=== PATIENT | male | born 1945 | race Caucasian/White ===

== ENCOUNTER 2018-12-11 10:53 | Inpatient (IN) | payer MEDICARE, OTHER, MEDICAID ==
[2018-12-11] MEDS: ALBUTEROL 0.5% (NEB) 2.5 MG/0.5 ML AMP INH (11:09)
[2018-12-11] MEDS: IPRATROPIUM (NEB) 0.5 MG/2.5 ML AMP INH (11:09)
[2018-12-11 11:13] LABS: ADD MAN DIFF? NO
[2018-12-11 11:14] LABS: WHITE BLOOD COUNT 5.1 10^3/ul (4.8-10.8)
[2018-12-11 11:14] LABS: ABNORMAL IP MESSAGE 1; BASOPHILS % 0.2 % (0.0-2.0); HEMATOCRIT 42.8 % (42.0-52.0); HEMOGLOBIN 13.7 g/dl (14.0-18.0); LYMPHOCYTES # 0.3 10^3/ul (0.8-2.9); LYMPHOCYTES % 5.7 % (15.0-51.0); MEAN CORPUSCULAR HEMOGLOBIN 26.8 pg (29.0-33.0); MEAN CORPUSCULAR VOLUME 83.8 fl (82.0-101.0); MEAN PLATELET VOLUME 10.5 fl (7.4-10.4); MONOCYTE # 0.1 10^3/ul (0.3-0.9); MONOCYTES % 2.4 % (0.0-11.0); NEUTROPHIL # 4.6 10^3/ul (1.6-7.5); PLATELET COUNT 321 10^3/UL (140-415); POSITIVE DIFF @See below; RED BLOOD COUNT 5.11 10^6/ul (4.70-6.10); RED CELL DISTRIBUTION WIDTH 14.6 % (11.5-14.5)
[2018-12-11 11:15] LABS: NEUTROPHILS % 91.5 % (39.0-77.0)
[2018-12-11] MEDS: SODIUM CHLORIDE 0.9% 1L BAG IV* (11:20)
[2018-12-11] MEDS: CEFEPIME 2GM/50 ML (PMX) 50 ML IVPB (11:20)
[2018-12-11] MEDS: ACETAMINOPHEN 650 MG SUPP PR (11:21)
[2018-12-11 11:31] LABS: ALANINE AMINOTRANSFERASE 15 IU/L (13-69); ALBUMIN 4.1 g/dl (3.3-4.9); ALKALINE PHOSPHATASE 60 IU/L (42-121); ANION GAP 17 (5-13); ASPARTATE AMINO TRANSFERASE 16 IU/L (15-46); BILIRUBIN,INDIRECT 0.4 mg/dl (0-1.1); BILIRUBIN,TOTAL 0.4 mg/dl (0.2-1.3); BLOOD UREA NITROGEN 104 mg/dl (7-20); CALCIUM 9.3 mg/dl (8.4-10.2); CARBON DIOXIDE 23 mmol/L (21-31); CHLORIDE 112 mmol/L (97-110); CREATININE 3.09 mg/dl (0.61-1.24); GLUCOSE 159 mg/dl (70-220); POTASSIUM 4.1 mmol/L (3.5-5.1); SODIUM 152 mmol/L (135-144); TOTAL PROTEIN 7.8 g/dl (6.1-8.1)
[2018-12-11 11:33] LABS: INR 1.05; PROTIME 13.8 Sec (11.9-14.9); PT RATIO 1.1
[2018-12-11 11:34] LABS: PARTIAL THROMBOPLASTIN TIME 28.3 Sec (23.0-35.0)
[2018-12-11 11:37] LABS: AADO2 Arterial 606.9 mmHg (7.0-24.0); Allen Test ACCEPTAB; Arterial Base Excess -1.5 mmol/L (-3.0-3); Arterial Blood Gas Oxygen Sat 93.9 mmHG (95.0-100.0); Arterial COHb 0.3 % (0.0-3.0); Arterial Fraction of Oxyhgb 93.4 % (93.0-99.0); Arterial MetHb 0.2 % (0.0-1.5); Arterial pCO2 33.7 mmhg (35-45); MODE MASK - NRB; Site Left Radial
[2018-12-11] MEDS: VANCOMYCIN 1 GM (PMX) 250 ML IVPB (11:52)
[2018-12-11 12:11] LABS: ANISOCYTOSIS 1+ (0-0); BAND NEUTROPHILS % (M) 20 % (0-4); LYMPHOCYTES #M 0.3 10^3/ul (0.8-2.9); LYMPHOCYTES % (M) 7 % (15-51); MONOCYTE #M 0.1 10^3/ul (0.3-0.9); MONOCYTES % (M) 3 % (0-11); PLATELET ESTIMATE NORMAL; POIKILOCYTOSIS 1+ (0-0); POLYCHROMASIA 1+ (0-0); SEG NEUT #M 3.6 10^3/ul (1.6-7.5); SEGMENTED NEUTROPHILS (M) % 70 % (39-77)
[2018-12-11] MEDS ORDERED: ONDANSETRON 4 MG INJ IV (14:00)
[2018-12-11] MEDS ORDERED: ACETAMINOPHEN 325 MG TAB PO (14:00)
[2018-12-11 14:09] LABS: ADD UMIC YES; UR ASCORBIC ACID NEGATIVE (NEGATIVE); UR BACTERIA FEW /HPF (NONE SEEN); UR BILIRUBIN (Dip) NEGATIVE (NEGATIVE); UR BLOOD (Dip) 2+ mg/dL (NEGATIVE); UR BUDDING YEAST MODERATE /HPF (NONE SEEN); UR CLARITY CLOUDY (CLEAR); UR COLOR AMBER (YELLOW); UR GLUCOSE (Dip) NEGATIVE (NEGATIVE); UR KETONES (Dip) NEGATIVE (NEGATIVE); UR LEUKOCYTE ESTERASE (Dip) NEGATIVE Leu/ul (NEGATIVE); UR NITRITE (Dip) NEGATIVE (NEGATIVE); UR RBC 98 /HPF (0-5); UR TOTAL PROTEIN (Dip) 1+ mg/dl (NEGATIVE); UR UROBILINOGEN (Dip) 1+ mg/dL (NEGATIVE); UR WBC 4 /HPF (0-5)
[2018-12-11 14:25] LABS: LACTIC ACID 2.3 mmol/L (0.5-2.0)
[2018-12-11] MEDS: LIDOCAINE 1% (MPF) 5 ML VIAL SC (14:45)
[2018-12-11] MEDS ORDERED: MAGNESIUM HYDROXIDE 30ML CUP PO (15:00)
[2018-12-11] MEDS ORDERED: BISACODYL 10 MG SUPP PR (15:00)
[2018-12-11] MEDS ORDERED: VANCOMYCIN IV PER PHARMACY XX (16:00)
[2018-12-11 16:15] LABS: CREATININE,URINE RANDOM 252.13 mg/dl (20-370)
[2018-12-11 16:16] LABS: SODIUM,URINE RANDOM < 13 mmol/L (30-90)
[2018-12-11] MEDS ORDERED: DEXTROSE 50% 50 ML SYRINGE IV ×2 (16:30)
[2018-12-11] MEDS ORDERED: GLUCOSE GEL 15 GRAM TUBE PO ×2 (16:30)
[2018-12-11] MEDS ORDERED: GLUCAGON 1 MG INJ IM (16:30)
[2018-12-11] MEDS ORDERED: GLUCOSE GEL 15 GRAM TUBE BUCCAL (16:30)
[2018-12-11] MEDS: SOD CHLORIDE 0.45% 1,000 ML IV (16:52)
[2018-12-11] MEDS: VANCOMYCIN 500 MG (PMX) 100 ML IVPB (16:53)
[2018-12-11 17:11] LABS: LACTIC ACID 2.6 mmol/L (0.5-2.0)
[2018-12-12] MEDS: SOD CHLORIDE 0.45% 1,000 ML IV ×4 (01:00→23:35)
[2018-12-12] MEDS ORDERED: PENDING SANTYL ORDER FOR WOUND CARE XX (05:00)
[2018-12-12 06:43] LABS: ADD MAN DIFF? NO
[2018-12-12 06:52] LABS: ABNORMAL IP MESSAGE 1; BASOPHILS % 0.7 % (0.0-2.0); HEMATOCRIT 41.6 % (42.0-52.0); HEMOGLOBIN 12.9 g/dl (14.0-18.0); LYMPHOCYTES # 0.3 10^3/ul (0.8-2.9); LYMPHOCYTES % 7.1 % (15.0-51.0); MEAN CORPUSCULAR HEMOGLOBIN 26.8 pg (29.0-33.0); MEAN CORPUSCULAR VOLUME 86.5 fl (82.0-101.0); MEAN PLATELET VOLUME 10.9 fl (7.4-10.4); MONOCYTE # 0.1 10^3/ul (0.3-0.9); MONOCYTES % 2.6 % (0.0-11.0); NEUTROPHIL # 3.8 10^3/ul (1.6-7.5); NEUTROPHILS % 89.4 % (39.0-77.0); PLATELET COUNT 245 10^3/UL (140-415); RED BLOOD COUNT 4.81 10^6/ul (4.70-6.10)
[2018-12-12 06:52] LABS: WHITE BLOOD COUNT 4.2 10^3/ul (4.8-10.8)
[2018-12-12 07:19] LABS: PREALBUMIN 10.3 mg/dl (17.6-36.0)
[2018-12-12 07:23] LABS: ANION GAP 11 (5-13); BLOOD UREA NITROGEN 85 mg/dl (7-20); CALCIUM 8.5 mg/dl (8.4-10.2); CARBON DIOXIDE 23 mmol/L (21-31); CHLORIDE 122 mmol/L (97-110); CREATININE 1.71 mg/dl (0.61-1.24); GLUCOSE 110 mg/dl (70-220); MAGNESIUM 2.9 mg/dl (1.7-2.5); PHOSPHORUS 3.8 mg/dl (2.5-4.9); POTASSIUM 3.3 mmol/L (3.5-5.1); SODIUM 156 mmol/L (135-144)
[2018-12-12 07:49] LABS: BAND NEUTROPHILS #M 0.8 10^3/ul (0.0-0.6); BAND NEUTROPHILS % (M) 20 % (0-4); LYMPHOCYTES #M 0.4 10^3/ul (0.8-2.9); LYMPHOCYTES % (M) 10 % (15-51); MONOCYTE #M 0.3 10^3/ul (0.3-0.9); MONOCYTES % (M) 8 % (0-11); PLATELET ESTIMATE NORMAL; POIKILOCYTOSIS 2+ (0-0); REACTIVE LYMPHOCYTES% (M) 1 % (0-0); SEG NEUT #M 2.6 10^3/ul (1.6-7.5); SEGMENTED NEUTROPHILS (M) % 61 % (39-77); SMUDGE%M 1 % (0-0); SPHEROCYTES 1+ (0-0)
[2018-12-12] MEDS: INSULIN ASPART [NOVOLOG] 3 ML PEN SC (07:55)
[2018-12-12] MEDS: CEFEPIME 1GM/50 ML (PMX) 50 ML IVPB (08:17)
[2018-12-12] MEDS: POTASSIUM CHLORIDE (SR) 20 MEQ TAB PO ×2 (09:01→09:08)
[2018-12-12] MEDS: POTASSIUM CHLORIDE 100 ML IVPB ×2 (10:02→11:39)
[2018-12-12 10:32] LABS: LACTIC ACID 1.6 mmol/L (0.5-2.0)
[2018-12-12] MEDS: Insulin NOVOLOG SS MILD Algorithm (NPO/TPN/ENTERAL FEEDS) SC ×3 (11:39→21:00)
[2018-12-12] MEDS ORDERED: INSULIN ASPART [NOVOLOG] 3 ML PEN SC (13:00)
[2018-12-12] MEDS ORDERED: VANCOMYCIN 500 MG (PMX) 100 ML IVPB (17:00)
[2018-12-12] MEDS: MEROPENEM 500MG/50 ML (PMX) 50 ML IVPB (21:12)
[2018-12-12] MEDS: ACETAMINOPHEN 650 MG SUPP PR (21:55)
[2018-12-13] MEDS: Insulin NOVOLOG SS MILD Algorithm (NPO/TPN/ENTERAL FEEDS) SC ×6 (01:00→21:00)
[2018-12-13] MEDS: SOD CHLORIDE 0.45% 1,000 ML IV ×2 (01:50→06:15)
[2018-12-13] MEDS: VANCOMYCIN 1 GM 250 ML IVPB (06:16)
[2018-12-13 06:22] LABS: ADD MAN DIFF? NO
[2018-12-13 06:25] LABS: ABNORMAL IP MESSAGE 1; BASOPHILS % 0.2 % (0.0-2.0); HEMATOCRIT 36.7 % (42.0-52.0); HEMOGLOBIN 11.2 g/dl (14.0-18.0); LYMPHOCYTES # 0.5 10^3/ul (0.8-2.9); LYMPHOCYTES % 10.2 % (15.0-51.0); MEAN CORPUSCULAR HEMOGLOBIN 26.4 pg (29.0-33.0); MEAN CORPUSCULAR HGB CONC 30.5 g/dl (32.0-37.0); MEAN CORPUSCULAR VOLUME 86.6 fl (82.0-101.0); MEAN PLATELET VOLUME 11.5 fl (7.4-10.4); MONOCYTE # 0.1 10^3/ul (0.3-0.9); NEUTROPHIL # 3.8 10^3/ul (1.6-7.5); NEUTROPHILS % 86.9 % (39.0-77.0); PLATELET COUNT 208 10^3/UL (140-415); POSITIVE DIFF @See below; RED BLOOD COUNT 4.24 10^6/ul (4.70-6.10); RED CELL DISTRIBUTION WIDTH 15.6 % (11.5-14.5)
[2018-12-13 06:25] LABS: WHITE BLOOD COUNT 4.4 10^3/ul (4.8-10.8)
[2018-12-13 06:49] LABS: ANION GAP 11 (5-13); BLOOD UREA NITROGEN 115 mg/dl (7-20); CALCIUM 8.1 mg/dl (8.4-10.2); CARBON DIOXIDE 18 mmol/L (21-31); CHLORIDE 125 mmol/L (97-110); GLUCOSE 110 mg/dl (70-220); MAGNESIUM 2.7 mg/dl (1.7-2.5); POTASSIUM 4.1 mmol/L (3.5-5.1); SODIUM 154 mmol/L (135-144)
[2018-12-13] MEDS: MEROPENEM 500MG/50 ML (PMX) 50 ML IVPB ×2 (09:49→21:03)
[2018-12-13 10:04] LABS: BAND NEUTROPHILS #M 0.6 10^3/ul (0.0-0.6); BAND NEUTROPHILS % (M) 15 % (0-4); BURR CELLS 1+ (0-0); GIANT THROMBO% (M) 2 % (0-0); LYMPHOCYTES #M 0.3 10^3/ul (0.8-2.9); LYMPHOCYTES % (M) 7 % (15-51); MONOCYTES % (M) 1 % (0-11); MYELOCYTES % (M) 1 % (0-0); OVALOCYTES 1+ (0-0); PLATELET ESTIMATE NORMAL; POIKILOCYTOSIS 1+ (0-0); SEG NEUT #M 3.4 10^3/ul (1.6-7.5); SEGMENTED NEUTROPHILS (M) % 76 % (39-77); SMUDGE%M 4 % (0-0)
[2018-12-13 11:17] LABS: AADO2 Arterial 460.2 mmHg (7.0-24.0); Allen Test ACCEPTAB; Arterial Blood Gas Oxygen Sat 94.4 mmHG (95.0-100.0); Arterial COHb 0.3 % (0.0-3.0); Arterial Fraction of Oxyhgb 93.9 % (93.0-99.0); Arterial HCO3 16.6 mmol/L (22.0-26.0); Arterial MetHb 0.2 % (0.0-1.5); Arterial pCO2 31.3 mmhg (35-45); MODE HFNC; Site Right Radial
[2018-12-13] MEDS: DEXTROSE 5% 1,000 ML IV ×2 (11:29→21:19)
[2018-12-13 12:51] LABS: ADD UMIC YES; UR ASCORBIC ACID NEGATIVE (NEGATIVE); UR BACTERIA FEW /HPF (NONE SEEN); UR BILIRUBIN (Dip) NEGATIVE (NEGATIVE); UR BLOOD (Dip) 2+ mg/dL (NEGATIVE); UR CLARITY SLIGHTLY CLOUDY (CLEAR); UR COLOR YELLOW (YELLOW); UR GLUCOSE (Dip) NEGATIVE (NEGATIVE); UR KETONES (Dip) NEGATIVE (NEGATIVE); UR LEUKOCYTE ESTERASE (Dip) NEGATIVE Leu/ul (NEGATIVE); UR NITRITE (Dip) NEGATIVE (NEGATIVE); UR RBC 4 /HPF (0-5); UR SPECIFIC GRAVITY (Dip) 1.016 (1.003-1.030); UR TOTAL PROTEIN (Dip) 1+ mg/dl (NEGATIVE); UR UROBILINOGEN (Dip) NEGATIVE (NEGATIVE); UR WBC 6 /HPF (0-5)
[2018-12-13] MEDS: BALSAM PERU/CASTOR OIL 60 GM TUBE TOP ×2 (12:55→21:19)
[2018-12-13 13:08] LABS: CREATININE,URINE RANDOM 91.85 mg/dl (20-370)
[2018-12-13 13:12] LABS: SODIUM,URINE RANDOM < 13 mmol/L (30-90)
[2018-12-13 15:52] LABS: CREATININE, RANDOM URINE 231 mg/dL (20-320); MICROALBUMIN 13.4 mg/dL; MICROALBUMIN/CREATININE RATIO 58 (<30)
[2018-12-13] MEDS: ACETAMINOPHEN 650 MG SUPP PR (20:57)
[2018-12-13] MEDS: LINEZOLID 600 MG/300 ML (PMX) 300 ML IVPB (22:55)
[2018-12-14 00:26] LABS: ANION GAP 8 (5-13); CALCIUM 8.6 mg/dl (8.4-10.2); CARBON DIOXIDE 20 mmol/L (21-31); CHLORIDE 128 mmol/L (97-110); CREATININE 2.67 mg/dl (0.61-1.24); GLUCOSE 118 mg/dl (70-220); MAGNESIUM 2.9 mg/dl (1.7-2.5); PHOSPHORUS 4.1 mg/dl (2.5-4.9); POTASSIUM 3.9 mmol/L (3.5-5.1); SODIUM 156 mmol/L (135-144)
[2018-12-14 00:34] LABS: BLOOD UREA NITROGEN 125 mg/dl (7-20)
[2018-12-14] MEDS: Insulin NOVOLOG SS MILD Algorithm (NPO/TPN/ENTERAL FEEDS) SC ×6 (01:00→21:00)
[2018-12-14 06:13] LABS: ADD MAN DIFF? NO
[2018-12-14 06:19] LABS: WHITE BLOOD COUNT 4.5 10^3/ul (4.8-10.8)
[2018-12-14 06:19] LABS: ABNORMAL IP MESSAGE 1; BASOPHILS % 0.2 % (0.0-2.0); HEMATOCRIT 34.4 % (42.0-52.0); HEMOGLOBIN 10.6 g/dl (14.0-18.0); LYMPHOCYTES # 0.4 10^3/ul (0.8-2.9); MEAN CORPUSCULAR HEMOGLOBIN 26.6 pg (29.0-33.0); MEAN CORPUSCULAR HGB CONC 30.8 g/dl (32.0-37.0); MEAN CORPUSCULAR VOLUME 86.2 fl (82.0-101.0); MEAN PLATELET VOLUME 11.5 fl (7.4-10.4); MONOCYTE # 0.1 10^3/ul (0.3-0.9); MONOCYTES % 1.3 % (0.0-11.0); NEUTROPHILS % 88.8 % (39.0-77.0); PLATELET COUNT 184 10^3/UL (140-415); POSITIVE DIFF @See below; RED BLOOD COUNT 3.99 10^6/ul (4.70-6.10); RED CELL DISTRIBUTION WIDTH 15.6 % (11.5-14.5)
[2018-12-14 07:05] LABS: ANION GAP 9 (5-13); CALCIUM 8.5 mg/dl (8.4-10.2); CARBON DIOXIDE 18 mmol/L (21-31); CHLORIDE 128 mmol/L (97-110); CREATININE 2.54 mg/dl (0.61-1.24); GLUCOSE 165 mg/dl (70-220); POTASSIUM 3.8 mmol/L (3.5-5.1); SODIUM 155 mmol/L (135-144)
[2018-12-14 07:19] LABS: BLOOD UREA NITROGEN 129 mg/dl (7-20)
[2018-12-14] MEDS: BALSAM PERU/CASTOR OIL 60 GM TUBE TOP ×2 (09:03→20:40)
[2018-12-14 09:08] LABS: AADO2 Arterial 468.6 mmHg (7.0-24.0); Arterial Base Excess -6.7 mmol/L (-3.0-3); Arterial Blood Gas Oxygen Sat 93.7 mmHG (95.0-100.0); Arterial COHb 0.1 % (0.0-3.0); Arterial Fraction of Oxyhgb 93.3 % (93.0-99.0); Arterial HCO3 16.8 mmol/L (22.0-26.0); Arterial MetHb 0.3 % (0.0-1.5); Arterial pCO2 28.8 mmhg (35-45); MODE HFNC; Site Right Brachial
[2018-12-14 09:14] LABS: BAND NEUTROPHILS #M 0.5 10^3/ul (0.0-0.6); BAND NEUTROPHILS % (M) 13 % (0-4); BURR CELLS 1+ (0-0); LYMPHOCYTES #M 0.3 10^3/ul (0.8-2.9); LYMPHOCYTES % (M) 8 % (15-51); MONOCYTES % (M) 2 % (0-11); OVALOCYTES 1+ (0-0); PLATELET ESTIMATE NORMAL; POIKILOCYTOSIS 2+ (0-0); SEG NEUT #M 3.5 10^3/ul (1.6-7.5); SEGMENTED NEUTROPHILS (M) % 77 % (39-77); SMUDGE%M 15 % (0-0)
[2018-12-14] MEDS: MEROPENEM 500MG/50 ML (PMX) 50 ML IVPB ×2 (09:15→20:41)
[2018-12-14] MEDS: LINEZOLID 600 MG/300 ML (PMX) 300 ML IVPB ×2 (09:19→20:41)
[2018-12-14] MEDS: ENOXAPARIN 60 MG/0.6 ML SYG SC (11:43)
[2018-12-14] MEDS: ASPIRIN (EC) 81 MG TAB PO (14:00)
[2018-12-14 15:28] LABS: ANION GAP 6 (5-13); CALCIUM 8.1 mg/dl (8.4-10.2); CARBON DIOXIDE 20 mmol/L (21-31); CHLORIDE 128 mmol/L (97-110); CREATININE 2.37 mg/dl (0.61-1.24); GLUCOSE 159 mg/dl (70-220); POTASSIUM 3.8 mmol/L (3.5-5.1); SODIUM 154 mmol/L (135-144)
[2018-12-14 15:46] LABS: BLOOD UREA NITROGEN 128 mg/dl (7-20)
[2018-12-14] MEDS: DEXTROSE 5% 1,000 ML IV ×2 (17:12→20:41)
[2018-12-14 22:56] LABS: ADD MAN DIFF? NO
[2018-12-14 22:59] LABS: ABNORMAL IP MESSAGE 1; HEMOGLOBIN 8.6 g/dl (14.0-18.0); LYMPHOCYTES # 0.4 10^3/ul (0.8-2.9); LYMPHOCYTES % 8.1 % (15.0-51.0); MEAN CORPUSCULAR HEMOGLOBIN 26.5 pg (29.0-33.0); MEAN CORPUSCULAR HGB CONC 30.7 g/dl (32.0-37.0); MEAN CORPUSCULAR VOLUME 86.2 fl (82.0-101.0); MEAN PLATELET VOLUME 12.5 fl (7.4-10.4); MONOCYTE # 0.1 10^3/ul (0.3-0.9); MONOCYTES % 2.1 % (0.0-11.0); NEUTROPHIL # 4.2 10^3/ul (1.6-7.5); NEUTROPHILS % 89.4 % (39.0-77.0); PLATELET COUNT 174 10^3/UL (140-415); POSITIVE DIFF @See below; RED BLOOD COUNT 3.25 10^6/ul (4.70-6.10); RED CELL DISTRIBUTION WIDTH 15.9 % (11.5-14.5)
[2018-12-14 22:59] LABS: WHITE BLOOD COUNT 4.7 10^3/ul (4.8-10.8)
[2018-12-15 00:45] LABS: ANISOCYTOSIS 1+ (0-0); BAND NEUTROPHILS #M 0.3 10^3/ul (0.0-0.6); BAND NEUTROPHILS % (M) 7 % (0-4); BURR CELLS 2+ (0-0); LYMPHOCYTES #M 0.2 10^3/ul (0.8-2.9); LYMPHOCYTES % (M) 5 % (15-51); MYELOCYTES % (M) 1 % (0-0); OVALOCYTES 1+ (0-0); PLASMAC%(M) 1 % (0); PLATELET ESTIMATE NORMAL; POIKILOCYTOSIS 2+ (0-0); POLYCHROMASIA 1+ (0-0); SEG NEUT #M 4.1 10^3/ul (1.6-7.5); SEGMENTED NEUTROPHILS (M) % 86 % (39-77); SMUDGE%M 1 % (0-0); TEAR DROP CELLS 1+ (0-0)
[2018-12-15] MEDS: Insulin NOVOLOG SS MILD Algorithm (NPO/TPN/ENTERAL FEEDS) SC ×6 (01:12→21:21)
[2018-12-15] MEDS: DEXTROSE 5% 1,000 ML IV ×3 (05:08→21:14)
[2018-12-15] MEDS: PANTOPRAZOLE 40 MG INJ IV ×2 (05:08→17:04)
[2018-12-15 06:31] LABS: WHITE BLOOD COUNT 4.9 10^3/ul (4.8-10.8)
[2018-12-15 06:31] LABS: ABNORMAL IP MESSAGE 1; HEMATOCRIT 27.1 % (42.0-52.0); HEMOGLOBIN 8.4 g/dl (14.0-18.0); MEAN CORPUSCULAR HEMOGLOBIN 27.1 pg (29.0-33.0); MEAN CORPUSCULAR VOLUME 87.4 fl (82.0-101.0); PLATELET COUNT 88 10^3/UL (140-415); POSITIVE DIFF @See below; RED CELL DISTRIBUTION WIDTH 16.1 % (11.5-14.5)
[2018-12-15 06:34] LABS: ADD MAN DIFF? YES
[2018-12-15 07:24] LABS: ANION GAP 7 (5-13); BLOOD UREA NITROGEN 119 mg/dl (7-20); CALCIUM 8.2 mg/dl (8.4-10.2); CARBON DIOXIDE 20 mmol/L (21-31); CHLORIDE 130 mmol/L (97-110); CREATININE 2.06 mg/dl (0.61-1.24); GLUCOSE 139 mg/dl (70-220); MAGNESIUM 2.7 mg/dl (1.7-2.5); PHOSPHORUS 3.5 mg/dl (2.5-4.9); POTASSIUM 3.4 mmol/L (3.5-5.1); SODIUM 157 mmol/L (135-144)
[2018-12-15 07:32] LABS: OCCULT BLOOD STOOL POSITIVE (NEGATIVE)
[2018-12-15] MEDS: ASPIRIN (EC) 81 MG TAB PO (07:57)
[2018-12-15] MEDS: MEROPENEM 500MG/50 ML (PMX) 50 ML IVPB ×2 (08:25→21:14)
[2018-12-15] MEDS: LINEZOLID 600 MG/300 ML (PMX) 300 ML IVPB ×2 (09:19→21:14)
[2018-12-15 10:04] LABS: ANISOCYTOSIS 1+ (0-0); BAND NEUTROPHILS #M 0.5 10^3/ul (0.0-0.6); BAND NEUTROPHILS % (M) 12 % (0-4); GIANT THROMBO% (M) 1 % (0-0); LYMPHOCYTES #M 0.4 10^3/ul (0.8-2.9); LYMPHOCYTES % (M) 9 % (15-51); MONOCYTES % (M) 2 % (0-11); PLATELET ESTIMATE DECREASED; POIKILOCYTOSIS 3+ (0-0); REACTIVE LYMPHOCYTES #M 0.1 10^3/ul (0.0-0.0); REACTIVE LYMPHOCYTES% (M) 4 % (0-0); SEG NEUT #M 3.6 10^3/ul (1.6-7.5); SEGMENTED NEUTROPHILS (M) % 73 % (39-77); SMUDGE%M 8 % (0-0)
[2018-12-15] MEDS: ALBUTEROL 0.083% (NEB) 2.5 MG/3 ML AMP NEB ×2 (10:13→14:21)
[2018-12-15] MEDS: POTASSIUM CHLORIDE 100 ML IVPB ×2 (10:44→12:14)
[2018-12-15] MEDS: BALSAM PERU/CASTOR OIL 60 GM TUBE TOP ×2 (10:51→21:14)
[2018-12-15 11:19] LABS: ADD UMIC YES; UR AMORPHOUS CRYSTAL MODERATE /HPF (NONE SEEN); UR ASCORBIC ACID NEGATIVE (NEGATIVE); UR BILIRUBIN (Dip) NEGATIVE (NEGATIVE); UR BLOOD (Dip) 2+ mg/dL (NEGATIVE); UR CLARITY CLOUDY (CLEAR); UR COLOR YELLOW (YELLOW); UR GLUCOSE (Dip) NEGATIVE (NEGATIVE); UR KETONES (Dip) NEGATIVE (NEGATIVE); UR LEUKOCYTE ESTERASE (Dip) NEGATIVE Leu/ul (NEGATIVE); UR NITRITE (Dip) NEGATIVE (NEGATIVE); UR RBC 1 /HPF (0-5); UR SPECIFIC GRAVITY (Dip) 1.016 (1.003-1.030); UR TOTAL PROTEIN (Dip) 1+ mg/dl (NEGATIVE); UR UROBILINOGEN (Dip) NEGATIVE (NEGATIVE); UR WBC 7 /HPF (0-5)
[2018-12-15] MEDS: ENOXAPARIN 30 MG/0.3 ML SYG SC (12:00)
[2018-12-15 12:48] LABS: CREATININE,URINE RANDOM 52.05 mg/dl (20-370)
[2018-12-15 12:49] LABS: SODIUM,URINE RANDOM < 13 mmol/L (30-90)
[2018-12-15 13:47] LABS: OSMOLALITY,URINE 534 mOsm/kg (250-1200)
[2018-12-15 16:08] LABS: ANION GAP 6 (5-13); BLOOD UREA NITROGEN 106 mg/dl (7-20); CALCIUM 7.8 mg/dl (8.4-10.2); CARBON DIOXIDE 19 mmol/L (21-31); CHLORIDE 132 mmol/L (97-110); CREATININE 1.89 mg/dl (0.61-1.24); GLUCOSE 147 mg/dl (70-220); POTASSIUM 3.7 mmol/L (3.5-5.1); SODIUM 157 mmol/L (135-144)
[2018-12-16] MEDS: Insulin NOVOLOG SS MILD Algorithm (NPO/TPN/ENTERAL FEEDS) SC ×6 (01:00→20:46)
[2018-12-16] MEDS: PANTOPRAZOLE 40 MG INJ IV ×2 (04:08→18:00)
[2018-12-16] MEDS: ALBUTEROL 0.083% (NEB) 2.5 MG/3 ML AMP NEB ×2 (05:22→11:14)
[2018-12-16 06:27] LABS: ABNORMAL IP MESSAGE 1; HEMATOCRIT 28.3 % (42.0-52.0); HEMOGLOBIN 8.6 g/dl (14.0-18.0); MEAN CORPUSCULAR HEMOGLOBIN 26.6 pg (29.0-33.0); MEAN CORPUSCULAR HGB CONC 30.4 g/dl (32.0-37.0); MEAN CORPUSCULAR VOLUME 87.6 fl (82.0-101.0); POSITIVE DIFF @See below; RED BLOOD COUNT 3.23 10^6/ul (4.70-6.10); RED CELL DISTRIBUTION WIDTH 16.1 % (11.5-14.5)
[2018-12-16 06:27] LABS: WHITE BLOOD COUNT 6.9 10^3/ul (4.8-10.8)
[2018-12-16 06:38] LABS: ADD MAN DIFF? YES; PLATELET COUNT 52 10^3/UL (140-415)
[2018-12-16 07:02] LABS: ANION GAP 5 (5-13); BLOOD UREA NITROGEN 91 mg/dl (7-20); CARBON DIOXIDE 20 mmol/L (21-31); CHLORIDE 131 mmol/L (97-110); CREATININE 1.78 mg/dl (0.61-1.24); GLUCOSE 153 mg/dl (70-220); MAGNESIUM 2.6 mg/dl (1.7-2.5); PHOSPHORUS 3.9 mg/dl (2.5-4.9); SODIUM 156 mmol/L (135-144)
[2018-12-16] MEDS: DEXTROSE 5% 1,000 ML IV (07:03)
[2018-12-16] MEDS: ASPIRIN (EC) 81 MG TAB PO (09:00)
[2018-12-16] MEDS: ENOXAPARIN 30 MG/0.3 ML SYG SC (09:00)
[2018-12-16] MEDS: BALSAM PERU/CASTOR OIL 60 GM TUBE TOP ×2 (09:00→20:47)
[2018-12-16 09:47] LABS: ANISOCYTOSIS 2+ (0-0); BAND NEUTROPHILS #M 0.2 10^3/ul (0.0-0.6); BAND NEUTROPHILS % (M) 4 % (0-4); BURR CELLS 1+ (0-0); GIANT THROMBO% (M) 1 % (0-0); LYMPHOCYTES #M 0.2 10^3/ul (0.8-2.9); LYMPHOCYTES % (M) 4 % (15-51); MONOCYTE #M 0.1 10^3/ul (0.3-0.9); MONOCYTES % (M) 2 % (0-11); PLATELET ESTIMATE DECREASED; PLATELET MORPHOLOGY COMMENT @See below; POIKILOCYTOSIS 2+ (0-0); POLYCHROMASIA 3+ (0-0); SEG NEUT #M 6.2 10^3/ul (1.6-7.5); SEGMENTED NEUTROPHILS (M) % 90 % (39-77); SMUDGE%M 4 % (0-0)
[2018-12-16] MEDS: MEROPENEM 500MG/50 ML (PMX) 50 ML IVPB ×2 (10:21→20:46)
[2018-12-16] MEDS: LINEZOLID 600 MG/300 ML (PMX) 300 ML IVPB ×2 (12:26→20:51)
[2018-12-16 14:57] LABS: CREATININE, RANDOM URINE 108 mg/dL (20-320); CREATININE, RANDOM URINE 56 mg/dL (20-320); MICROALBUMIN 10.9 mg/dL; MICROALBUMIN/CREATININE RATIO 101 (<30); MICROALBUMIN/CREATININE RATIO 36 (<30)
[2018-12-16 15:21] LABS: ANION GAP 8 (5-13); BLOOD UREA NITROGEN 85 mg/dl (7-20); CALCIUM 8.1 mg/dl (8.4-10.2); CARBON DIOXIDE 17 mmol/L (21-31); CHLORIDE 130 mmol/L (97-110); CREATININE 1.72 mg/dl (0.61-1.24); GLUCOSE 175 mg/dl (70-220); POTASSIUM 4.1 mmol/L (3.5-5.1); SODIUM 155 mmol/L (135-144)
[2018-12-16 19:05] LABS: ALANINE AMINOTRANSFERASE 16 IU/L (13-69); ALBUMIN 2.5 g/dl (3.3-4.9); ALBUMIN/GLOBULIN RATIO 0.67; ALKALINE PHOSPHATASE 57 IU/L (42-121); ANION GAP 5 (5-13); ASPARTATE AMINO TRANSFERASE 26 IU/L (15-46); BILIRUBIN,INDIRECT 0.3 mg/dl (0-1.1); BILIRUBIN,TOTAL 0.3 mg/dl (0.2-1.3); BLOOD UREA NITROGEN 81 mg/dl (7-20); CALCIUM 7.9 mg/dl (8.4-10.2); CARBON DIOXIDE 20 mmol/L (21-31); CHLORIDE 130 mmol/L (97-110); CREATININE 1.68 mg/dl (0.61-1.24); GLUCOSE 126 mg/dl (70-220); MAGNESIUM 2.5 mg/dl (1.7-2.5); PHOSPHORUS 3.5 mg/dl (2.5-4.9); POTASSIUM 3.8 mmol/L (3.5-5.1); SODIUM 155 mmol/L (135-144); TOTAL PROTEIN 6.2 g/dl (6.1-8.1); TRIGLYCERIDES 304 mg/dl (0-149)
[2018-12-16 19:11] LABS: PREALBUMIN 6.6 mg/dl (17.6-36.0)
[2018-12-16 22:44] LABS: TYPE AND SCREEN 1
[2018-12-17] MEDS: Insulin NOVOLOG SS MILD Algorithm (NPO/TPN/ENTERAL FEEDS) SC ×6 (01:00→20:41)
[2018-12-17] MEDS: PANTOPRAZOLE 40 MG INJ IV ×2 (05:37→17:52)
[2018-12-17 06:03] LABS: ANION GAP 4 (5-13); BLOOD UREA NITROGEN 76 mg/dl (7-20); CALCIUM 8.3 mg/dl (8.4-10.2); CARBON DIOXIDE 25 mmol/L (21-31); CHLORIDE 129 mmol/L (97-110); CREATININE 1.78 mg/dl (0.61-1.24); GLUCOSE 107 mg/dl (70-220); MAGNESIUM 2.6 mg/dl (1.7-2.5); PHOSPHORUS 3.4 mg/dl (2.5-4.9); POTASSIUM 3.8 mmol/L (3.5-5.1); SODIUM 158 mmol/L (135-144)
[2018-12-17 06:45] LABS: WHITE BLOOD COUNT 6.9 10^3/ul (4.8-10.8)
[2018-12-17 06:45] LABS: ABNORMAL IP MESSAGE 1; HEMATOCRIT 21.7 % (42.0-52.0); MEAN CORPUSCULAR HEMOGLOBIN 27.3 pg (29.0-33.0); MEAN CORPUSCULAR HGB CONC 30.9 g/dl (32.0-37.0); MEAN CORPUSCULAR VOLUME 88.6 fl (82.0-101.0); PLATELET COUNT 272 10^3/UL (140-415); POSITIVE DIFF @See below; RED BLOOD COUNT 2.45 10^6/ul (4.70-6.10); RED CELL DISTRIBUTION WIDTH 16.1 % (11.5-14.5)
[2018-12-17 06:49] LABS: ADD MAN DIFF? YES; HEMOGLOBIN 6.7 g/dl (14.0-18.0)
[2018-12-17] MEDS: DEXTROSE 5% 1,000 ML IV ×2 (07:54→14:40)
[2018-12-17] MEDS: BALSAM PERU/CASTOR OIL 60 GM TUBE TOP ×2 (08:52→20:35)
[2018-12-17] MEDS: ASPIRIN (EC) 81 MG TAB PO (08:52)
[2018-12-17] MEDS: MEROPENEM 500MG/50 ML (PMX) 50 ML IVPB ×2 (08:52→20:35)
[2018-12-17] MEDS: LINEZOLID 600 MG/300 ML (PMX) 300 ML IVPB ×2 (08:53→20:35)
[2018-12-17 09:49] LABS: BAND NEUTROPHILS #M 0.6 10^3/ul (0.0-0.6); BAND NEUTROPHILS % (M) 10 % (0-4); LYMPHOCYTES #M 0.3 10^3/ul (0.8-2.9); LYMPHOCYTES % (M) 5 % (15-51); MONOCYTE #M 0.1 10^3/ul (0.3-0.9); MONOCYTES % (M) 2 % (0-11); PLATELET ESTIMATE NORMAL; POIKILOCYTOSIS 1+ (0-0); POLYCHROMASIA 3+ (0-0); SEG NEUT #M 5.8 10^3/ul (1.6-7.5); SEGMENTED NEUTROPHILS (M) % 83 % (39-77); SMUDGE%M 10 % (0-0)
[2018-12-17 10:10] LABS: IMMEDIATE SPIN CROSSMATCH 1 2
[2018-12-17 15:57] LABS: ANION GAP 5 (5-13); BLOOD UREA NITROGEN 68 mg/dl (7-20); CALCIUM 8.1 mg/dl (8.4-10.2); CARBON DIOXIDE 22 mmol/L (21-31); CHLORIDE 131 mmol/L (97-110); CREATININE 1.51 mg/dl (0.61-1.24); GLUCOSE 110 mg/dl (70-220); POTASSIUM 3.4 mmol/L (3.5-5.1); SODIUM 158 mmol/L (135-144)
[2018-12-17 16:44] LABS: WHITE BLOOD COUNT 7.5 10^3/ul (4.8-10.8)
[2018-12-17 16:44] LABS: ABNORMAL IP MESSAGE 1; MEAN CORPUSCULAR HEMOGLOBIN 27.1 pg (29.0-33.0); MEAN CORPUSCULAR HGB CONC 29.6 g/dl (32.0-37.0); MEAN CORPUSCULAR VOLUME 91.5 fl (82.0-101.0); MEAN PLATELET VOLUME 11.8 fl (7.4-10.4); PLATELET COUNT 244 10^3/UL (140-415); POSITIVE DIFF @See below; RED BLOOD COUNT 2.95 10^6/ul (4.70-6.10); RED CELL DISTRIBUTION WIDTH 15.8 % (11.5-14.5)
[2018-12-17 16:58] LABS: ADD MAN DIFF? YES
[2018-12-17 17:37] LABS: ANISOCYTOSIS 1+ (0-0); BAND NEUTROPHILS #M 0.2 10^3/ul (0.0-0.6); BAND NEUTROPHILS % (M) 3 % (0-4); LYMPHOCYTES #M 0.3 10^3/ul (0.8-2.9); LYMPHOCYTES % (M) 4 % (15-51); MICROCYTOSIS 1+ (0-0); MONOCYTE #M 0.1 10^3/ul (0.3-0.9); MONOCYTES % (M) 2 % (0-11); PLATELET ESTIMATE NORMAL; SEG NEUT #M 6.8 10^3/ul (1.6-7.5); SEGMENTED NEUTROPHILS (M) % 91 % (39-77); SMUDGE%M 3 % (0-0)
[2018-12-17] MEDS: TPN 1,000 ML IV (17:52)
[2018-12-17] MEDS: LORAZEPAM 2 MG INJ IM (19:30)
[2018-12-17] MEDS: POTASSIUM CHLORIDE 100 ML IVPB (23:47)
[2018-12-18] MEDS: DESMOPRESSIN 4 MCG INJ IV (00:51)
[2018-12-18] MEDS: Insulin NOVOLOG SS MILD Algorithm (NPO/TPN/ENTERAL FEEDS) SC ×6 (00:55→20:33)
[2018-12-18] MEDS: PANTOPRAZOLE 40 MG INJ IV ×2 (06:00→17:19)
[2018-12-18] MEDS: DEXTROSE 5% 1,000 ML IV ×3 (06:17→20:33)
[2018-12-18] MEDS: TPN 1,000 ML IV ×2 (06:17→20:32)
[2018-12-18 06:22] LABS: ADD MAN DIFF? NO
[2018-12-18 06:38] LABS: EOSINOPHILS # 0.1 10^3/ul (0.0-0.5); EOSINOPHILS % 0.7 % (0.0-7.0); HEMATOCRIT 26.6 % (42.0-52.0); LYMPHOCYTES # 0.7 10^3/ul (0.8-2.9); LYMPHOCYTES % 7.7 % (15.0-51.0); MEAN CORPUSCULAR HEMOGLOBIN 26.7 pg (29.0-33.0); MEAN CORPUSCULAR HGB CONC 30.1 g/dl (32.0-37.0); MEAN CORPUSCULAR VOLUME 88.7 fl (82.0-101.0); MEAN PLATELET VOLUME 11.7 fl (7.4-10.4); MONOCYTE # 0.1 10^3/ul (0.3-0.9); MONOCYTES % 1.1 % (0.0-11.0); NEUTROPHILS % 89.9 % (39.0-77.0); PLATELET COUNT 205 10^3/UL (140-415); POSITIVE DIFF @See below; RED CELL DISTRIBUTION WIDTH 15.6 % (11.5-14.5)
[2018-12-18 06:38] LABS: WHITE BLOOD COUNT 8.9 10^3/ul (4.8-10.8)
[2018-12-18 06:48] LABS: ANION GAP 3 (5-13); BLOOD UREA NITROGEN 66 mg/dl (7-20); CARBON DIOXIDE 25 mmol/L (21-31); CHLORIDE 130 mmol/L (97-110); CREATININE 1.44 mg/dl (0.61-1.24); GLUCOSE 149 mg/dl (70-220); MAGNESIUM 2.4 mg/dl (1.7-2.5); POTASSIUM 3.5 mmol/L (3.5-5.1); SODIUM 158 mmol/L (135-144)
[2018-12-18 06:53] LABS: PHOSPHORUS 2.1 mg/dl (2.5-4.9)
[2018-12-18] MEDS: ASPIRIN (EC) 81 MG TAB PO (09:00)
[2018-12-18 09:15] LABS: BAND NEUTROPHILS #M 0.6 10^3/ul (0.0-0.6); BAND NEUTROPHILS % (M) 7 % (0-4); EOSINOPHILS % (M) 1 % (0-7); GIANT THROMBO% (M) 1 % (0-0); LYMPHOCYTES #M 0.5 10^3/ul (0.8-2.9); LYMPHOCYTES % (M) 6 % (15-51); MONOCYTE #M 0.1 10^3/ul (0.3-0.9); MONOCYTES % (M) 2 % (0-11); PLATELET ESTIMATE NORMAL; POIKILOCYTOSIS 1+ (0-0); POLYCHROMASIA 1+ (0-0); REACTIVE LYMPHOCYTES #M 0.1 10^3/ul (0.0-0.0); REACTIVE LYMPHOCYTES% (M) 2 % (0-0); SEG NEUT #M 7.4 10^3/ul (1.6-7.5); SEGMENTED NEUTROPHILS (M) % 82 % (39-77); SMUDGE%M 1 % (0-0)
[2018-12-18] MEDS: MEROPENEM 500MG/50 ML (PMX) 50 ML IVPB ×2 (09:24→20:33)
[2018-12-18] MEDS: BALSAM PERU/CASTOR OIL 60 GM TUBE TOP ×2 (09:25→20:34)
[2018-12-18] MEDS: LINEZOLID 600 MG/300 ML (PMX) 300 ML IVPB ×2 (10:22→20:33)
[2018-12-18] MEDS: KETAMINE (50 MG/ML) 10 ML VIAL (12:12)
[2018-12-18] MEDS: GLUCAGON 1 MG INJ (12:20)
[2018-12-18] MEDS: POTASSIUM PHOSPHATE 15 MM in SOD CHLORIDE 0.9% 250 ML IV (15:01)
[2018-12-18 16:34] LABS: ANION GAP 7 (5-13); BLOOD UREA NITROGEN 63 mg/dl (7-20); CARBON DIOXIDE 23 mmol/L (21-31); CHLORIDE 129 mmol/L (97-110); CREATININE 1.17 mg/dl (0.61-1.24); GLUCOSE 166 mg/dl (70-220); POTASSIUM 3.6 mmol/L (3.5-5.1); SODIUM 159 mmol/L (135-144)
[2018-12-18 17:53] LABS: ADD UMIC YES; UR ASCORBIC ACID NEGATIVE (NEGATIVE); UR BILIRUBIN (Dip) NEGATIVE (NEGATIVE); UR BLOOD (Dip) 2+ mg/dL (NEGATIVE); UR CLARITY CLEAR (CLEAR); UR COLOR YELLOW (YELLOW); UR GLUCOSE (Dip) NEGATIVE (NEGATIVE); UR KETONES (Dip) NEGATIVE (NEGATIVE); UR LEUKOCYTE ESTERASE (Dip) NEGATIVE Leu/ul (NEGATIVE); UR NITRITE (Dip) NEGATIVE (NEGATIVE); UR RBC 1 /HPF (0-5); UR SPECIFIC GRAVITY (Dip) 1.016 (1.003-1.030); UR TOTAL PROTEIN (Dip) 1+ mg/dl (NEGATIVE); UR UROBILINOGEN (Dip) NEGATIVE (NEGATIVE); UR WBC 2 /HPF (0-5)
[2018-12-18 18:06] LABS: OSMOLALITY,URINE 535 mOsm/kg (250-1200)
[2018-12-18 18:07] LABS: CREATININE,URINE RANDOM 47.17 mg/dl (20-370)
[2018-12-18 18:07] LABS: SODIUM,URINE RANDOM 23 mmol/L (30-90)
[2018-12-18 19:55] LABS: ANION GAP 6 (5-13); BLOOD UREA NITROGEN 61 mg/dl (7-20); CALCIUM 7.5 mg/dl (8.4-10.2); CARBON DIOXIDE 23 mmol/L (21-31); CHLORIDE 125 mmol/L (97-110); CREATININE 1.13 mg/dl (0.61-1.24); GLUCOSE 246 mg/dl (70-220); POTASSIUM 3.4 mmol/L (3.5-5.1); SODIUM 154 mmol/L (135-144)
[2018-12-18] MEDS: FAMOTIDINE 20 MG INJ IV (20:33)
[2018-12-18] MEDS: POTASSIUM CHLORIDE 100 ML IVPB (21:08)
[2018-12-19] MEDS: Insulin NOVOLOG SS MILD Algorithm (NPO/TPN/ENTERAL FEEDS) SC ×6 (00:50→21:00)
[2018-12-19] MEDS: MEROPENEM 500MG/50 ML (PMX) 50 ML IVPB ×2 (08:24→21:50)
[2018-12-19] MEDS: FAMOTIDINE 20 MG INJ IV ×2 (08:24→21:50)
[2018-12-19] MEDS: ASPIRIN (EC) 81 MG TAB PO (08:25)
[2018-12-19 08:30] LABS: ABNORMAL IP MESSAGE 1; HEMATOCRIT 21.8 % (42.0-52.0); MEAN CORPUSCULAR HEMOGLOBIN 26.9 pg (29.0-33.0); MEAN CORPUSCULAR HGB CONC 30.7 g/dl (32.0-37.0); MEAN CORPUSCULAR VOLUME 87.6 fl (82.0-101.0); MEAN PLATELET VOLUME 11.3 fl (7.4-10.4); PLATELET COUNT 216 10^3/UL (140-415); POSITIVE DIFF @See below; RED BLOOD COUNT 2.49 10^6/ul (4.70-6.10); RED CELL DISTRIBUTION WIDTH 15.3 % (11.5-14.5)
[2018-12-19 08:30] LABS: WHITE BLOOD COUNT 7.4 10^3/ul (4.8-10.8)
[2018-12-19] MEDS: ALBUTEROL 0.083% (NEB) 2.5 MG/3 ML AMP NEB ×3 (08:35→08:39)
[2018-12-19 08:42] LABS: ADD MAN DIFF? YES; HEMOGLOBIN 6.7 g/dl (14.0-18.0)
[2018-12-19] MEDS: LINEZOLID 600 MG/300 ML (PMX) 300 ML IVPB ×2 (08:49→21:50)
[2018-12-19] MEDS: BALSAM PERU/CASTOR OIL 60 GM TUBE TOP ×2 (08:50→21:51)
[2018-12-19 08:59] LABS: ANION GAP 7 (5-13); BLOOD UREA NITROGEN 60 mg/dl (7-20); CALCIUM 7.6 mg/dl (8.4-10.2); CARBON DIOXIDE 21 mmol/L (21-31); CHLORIDE 125 mmol/L (97-110); CREATININE 1.07 mg/dl (0.61-1.24); GLUCOSE 130 mg/dl (70-220); MAGNESIUM 1.9 mg/dl (1.7-2.5); PHOSPHORUS 2.3 mg/dl (2.5-4.9); POTASSIUM 3.4 mmol/L (3.5-5.1); SODIUM 153 mmol/L (135-144)
[2018-12-19] MEDS: TPN 1,000 ML IV ×2 (09:01→21:50)
[2018-12-19 10:07] LABS: ANISOCYTOSIS 1+ (0-0); BAND NEUTROPHILS % (M) 1 % (0-4); EOSINOPHILS % (M) 1 % (0-7); HYPOCHROMASIA 2+ (0-0); LYMPHOCYTES #M 0.5 10^3/ul (0.8-2.9); LYMPHOCYTES % (M) 8 % (15-51); MICROCYTOSIS 1+ (0-0); MONOCYTES % (M) 1 % (0-11); PLATELET ESTIMATE NORMAL; POIKILOCYTOSIS 1+ (0-0); POLYCHROMASIA 1+ (0-0); SEG NEUT #M 6.6 10^3/ul (1.6-7.5); SEGMENTED NEUTROPHILS (M) % 89 % (39-77); SMUDGE%M 1 % (0-0)
[2018-12-19] MEDS: DEXTROSE 5% 1,000 ML IV ×2 (10:10→21:51)
[2018-12-19] MEDS: POTASSIUM CHLORIDE 100 ML IVPB ×3 (10:10→21:54)
[2018-12-19 16:07] LABS: CREATININE, RANDOM URINE 52 mg/dL (20-320); MICROALBUMIN/CREATININE RATIO 96 (<30)
[2018-12-19 17:11] LABS: ANION GAP 6 (5-13); BLOOD UREA NITROGEN 61 mg/dl (7-20); CALCIUM 7.3 mg/dl (8.4-10.2); CARBON DIOXIDE 20 mmol/L (21-31); CHLORIDE 125 mmol/L (97-110); CREATININE 1.01 mg/dl (0.61-1.24); GLUCOSE 156 mg/dl (70-220); POTASSIUM 3.4 mmol/L (3.5-5.1); SODIUM 151 mmol/L (135-144)
[2018-12-19] MEDS ORDERED: PANTOPRAZOLE 40 MG INJ IV (18:00)
[2018-12-19] MEDS ORDERED: BUDESONIDE (NEB) 0.5MG/2ML AMP (21:22)
[2018-12-20] MEDS: METOPROLOL 5 MG INJ IV (01:14)
[2018-12-20] MEDS: Insulin NOVOLOG SS MILD Algorithm (NPO/TPN/ENTERAL FEEDS) SC ×5 (01:22→16:50)
[2018-12-20 01:29] LABS: AADO2 Arterial 167.2 mmHg (7.0-24.0); Allen Test ACCEPTAB; Arterial Base Excess -4.6 mmol/L (-3.0-3); Arterial Blood Gas Oxygen Sat 94.8 mmHG (95.0-100.0); Arterial COHb 0.5 % (0.0-3.0); Arterial Fraction of Oxyhgb 93.5 % (93.0-99.0); Arterial HCO3 20.1 mmol/L (22.0-26.0); Arterial MetHb 0.9 % (0.0-1.5); Arterial pCO2 34.5 mmhg (35-45); MODE HFNC; Site Right Brachial
[2018-12-20] MEDS: FUROSEMIDE 40 MG INJ IV (02:24)
[2018-12-20 02:31] LABS: ABNORMAL IP MESSAGE 1; HEMATOCRIT 15.3 % (42.0-52.0); MEAN CORPUSCULAR HEMOGLOBIN 28.5 pg (29.0-33.0); MEAN CORPUSCULAR HGB CONC 29.4 g/dl (32.0-37.0); MEAN CORPUSCULAR VOLUME 96.8 fl (82.0-101.0); MEAN PLATELET VOLUME 10.5 fl (7.4-10.4); PLATELET COUNT 163 10^3/UL (140-415); POSITIVE DIFF @See below; RED BLOOD COUNT 1.58 10^6/ul (4.70-6.10); RED CELL DISTRIBUTION WIDTH 15.7 % (11.5-14.5)
[2018-12-20 02:39] LABS: ADD MAN DIFF? YES; HEMOGLOBIN 4.5 g/dl (14.0-18.0)
[2018-12-20 03:35] LABS: LYMPHOCYTES #M 0.4 10^3/ul (0.8-2.9); LYMPHOCYTES % (M) 7 % (15-51); MONOCYTES % (M) 1 % (0-11); PLATELET ESTIMATE NORMAL; POLYCHROMASIA 1+ (0-0); SEGMENTED NEUTROPHILS (M) % 92 % (39-77)
[2018-12-20 04:02] LABS: HEMATOCRIT 24.3 % (42.0-52.0); HEMOGLOBIN 7.5 g/dl (14.0-18.0); MEAN CORPUSCULAR HEMOGLOBIN 27.9 pg (29.0-33.0); MEAN CORPUSCULAR HGB CONC 30.9 g/dl (32.0-37.0); MEAN CORPUSCULAR VOLUME 90.3 fl (82.0-101.0); MEAN PLATELET VOLUME 12.2 fl (7.4-10.4); PLATELET COUNT 188 10^3/UL (140-415); POSITIVE DIFF @See below; RED BLOOD COUNT 2.69 10^6/ul (4.70-6.10); RED CELL DISTRIBUTION WIDTH 15.1 % (11.5-14.5)
[2018-12-20 04:02] LABS: WHITE BLOOD COUNT 9.8 10^3/ul (4.8-10.8)
[2018-12-20 04:06] LABS: ADD MAN DIFF? YES
[2018-12-20 04:45] LABS: LYMPHOCYTES #M 0.3 10^3/ul (0.8-2.9); LYMPHOCYTES % (M) 4 % (15-51); MONOCYTE #M 0.1 10^3/ul (0.3-0.9); MONOCYTES % (M) 2 % (0-11); PLATELET ESTIMATE NORMAL; POIKILOCYTOSIS 1+ (0-0); POLYCHROMASIA 3+ (0-0); SEGMENTED NEUTROPHILS (M) % 94 % (39-77); SMUDGE%M 4 % (0-0)
[2018-12-20] MEDS: ALBUTEROL 0.083% (NEB) 2.5 MG/3 ML AMP NEB (04:59)
[2018-12-20] MEDS: ALBUTEROL/IPRATROPIUM (NEB) 3 ML AMP HHN ×5 (05:14→20:29)
[2018-12-20 05:57] LABS: ANION GAP 5 (5-13); BLOOD UREA NITROGEN 68 mg/dl (7-20); CALCIUM 7.6 mg/dl (8.4-10.2); CARBON DIOXIDE 23 mmol/L (21-31); CHLORIDE 124 mmol/L (97-110); CREATININE 1.09 mg/dl (0.61-1.24); GLUCOSE 131 mg/dl (70-220); MAGNESIUM 1.8 mg/dl (1.7-2.5); PHOSPHORUS 2.5 mg/dl (2.5-4.9); POTASSIUM 3.5 mmol/L (3.5-5.1); SODIUM 152 mmol/L (135-144)
[2018-12-20] MEDS: ASPIRIN (EC) 81 MG TAB PO (08:50)
[2018-12-20] MEDS: FAMOTIDINE 20 MG INJ IV ×2 (08:50→21:00)
[2018-12-20] MEDS: MEROPENEM 500MG/50 ML (PMX) 50 ML IVPB ×2 (08:50→21:20)
[2018-12-20] MEDS: LINEZOLID 600 MG/300 ML (PMX) 300 ML IVPB ×2 (08:52→20:30)
[2018-12-20] MEDS ORDERED: morphine 2 MG INJ (09:14)
[2018-12-20] MEDS: morphine 2 MG INJ IV ×2 (09:17→18:34)
[2018-12-20 11:47] LABS: HEMATOCRIT 19.1 % (42.0-52.0)
[2018-12-20 12:05] LABS: HEMOGLOBIN 6.1 g/dl (14.0-18.0)
[2018-12-20 12:18] LABS: ANION GAP 6 (5-13); BLOOD UREA NITROGEN 69 mg/dl (7-20); CALCIUM 7.7 mg/dl (8.4-10.2); CARBON DIOXIDE 25 mmol/L (21-31); CHLORIDE 122 mmol/L (97-110); CREATININE 1.19 mg/dl (0.61-1.24); GLUCOSE 180 mg/dl (70-220); POTASSIUM 3.2 mmol/L (3.5-5.1); SODIUM 153 mmol/L (135-144)
[2018-12-20] MEDS: BALSAM PERU/CASTOR OIL 60 GM TUBE TOP ×2 (12:25→21:00)
[2018-12-20] MEDS: DEXTROSE 5% 1,000 ML IV (12:26)
[2018-12-20] MEDS: FUROSEMIDE 20 MG INJ IV ×2 (12:52→17:23)
[2018-12-20] MEDS: ALTEPLASE (CATHFLO) 2 MG INJ CATHETER (15:25)
[2018-12-20] MEDS: POTASSIUM CHLORIDE 50 ML IVPB ×2 (16:12→17:25)
[2018-12-20] MEDS ORDERED: PANTOPRAZOLE (EC) 40 MG TAB PO (18:00)
[2018-12-20] MEDS: SUCRALFATE (100 MG/ML) 10ML CUP NGT (21:00)
[2018-12-20] MEDS ORDERED: FAMOTIDINE 20 MG INJ IV (21:00)
[2018-12-20 21:56] LABS: HEMATOCRIT 29.9 % (42.0-52.0)
[2018-12-20 22:29] LABS: AADO2 Arterial 191.4 mmHg (7.0-24.0); Allen Test ACCEPTAB; Arterial Base Excess -1.9 mmol/L (-3.0-3); Arterial Blood Gas Oxygen Sat 91.9 mmHG (95.0-100.0); Arterial COHb 0.1 % (0.0-3.0); Arterial Fraction of Oxyhgb 91.5 % (93.0-99.0); Arterial HCO3 20.8 mmol/L (22.0-26.0); Arterial MetHb 0.3 % (0.0-1.5); Arterial pCO2 29.1 mmhg (35-45); MODE HFNC; Site Right Radial
[2018-12-21] MEDS: Insulin NOVOLOG SS MILD Algorithm (NPO/TPN/ENTERAL FEEDS) SC ×7 (00:01→20:34)
[2018-12-21] MEDS: ALBUTEROL/IPRATROPIUM (NEB) 3 ML AMP HHN ×3 (00:58→09:00)
[2018-12-21] MEDS ORDERED: NORepinephrine 8MG/250 ML (PMX 250 ML (03:05)
[2018-12-21 05:01] LABS: ADD MAN DIFF? NO
[2018-12-21 05:10] LABS: HEMATOCRIT 27.8 % (42.0-52.0)
[2018-12-21 05:14] LABS: WHITE BLOOD COUNT 16.7 10^3/ul (4.8-10.8)
[2018-12-21 05:14] LABS: BASOPHILS % 0.1 % (0.0-2.0); HEMATOCRIT 28.9 % (42.0-52.0); HEMOGLOBIN 9.5 g/dl (14.0-18.0); LYMPHOCYTES # 0.8 10^3/ul (0.8-2.9); MEAN CORPUSCULAR HEMOGLOBIN 29.1 pg (29.0-33.0); MEAN CORPUSCULAR HGB CONC 32.9 g/dl (32.0-37.0); MEAN CORPUSCULAR VOLUME 88.4 fl (82.0-101.0); MEAN PLATELET VOLUME 11.7 fl (7.4-10.4); MONOCYTE # 0.4 10^3/ul (0.3-0.9); MONOCYTES % 2.2 % (0.0-11.0); NEUTROPHIL # 15.4 10^3/ul (1.6-7.5); PLATELET COUNT 274 10^3/UL (140-415); RED BLOOD COUNT 3.27 10^6/ul (4.70-6.10); RED CELL DISTRIBUTION WIDTH 14.3 % (11.5-14.5)
[2018-12-21 05:33] LABS: ANION GAP 11 (5-13); BLOOD UREA NITROGEN 100 mg/dl (7-20); CALCIUM 7.9 mg/dl (8.4-10.2); CARBON DIOXIDE 21 mmol/L (21-31); CHLORIDE 124 mmol/L (97-110); CREATININE 1.92 mg/dl (0.61-1.24); GLUCOSE 206 mg/dl (70-220); PHOSPHORUS 7.7 mg/dl (2.5-4.9); POTASSIUM 4.6 mmol/L (3.5-5.1); SODIUM 156 mmol/L (135-144)
[2018-12-21] MEDS: DEXTROSE 5% 1,000 ML IV (05:51)
[2018-12-21] MEDS ORDERED: SUCCINYLCHOLINE CHLORIDE 100 MG/5 ML SYG IV (07:00)
[2018-12-21] MEDS ORDERED: ETOMIDATE 20 MG INJ (07:00)
[2018-12-21] MEDS: PHENYLephrine 20MG IN 250 ML 250 ML IV ×6 (08:47→21:53)
[2018-12-21] MEDS: ASPIRIN (EC) 81 MG TAB PO (09:00)
[2018-12-21] MEDS: SUCRALFATE (100 MG/ML) 10ML CUP NGT ×4 (09:00→20:22)
[2018-12-21 09:24] LABS: AADO2 Arterial 388.9 mmHg (7.0-24.0); Allen Test ACCEPTAB; Arterial Base Excess -15.2 mmol/L (-3.0-3); Arterial Blood Gas Oxygen Sat 98.7 mmHG (95.0-100.0); Arterial COHb 0.2 % (0.0-3.0); Arterial Fraction of Oxyhgb 98.1 % (93.0-99.0); Arterial HCO3 15.4 mmol/L (22.0-26.0); Arterial MetHb 0.4 % (0.0-1.5); Arterial pCO2 60.6 mmhg (35-45); MODE VENT - AC; Site Left Radial
[2018-12-21] MEDS: LINEZOLID 600 MG/300 ML (PMX) 300 ML IVPB ×2 (09:25→21:21)
[2018-12-21] MEDS: MEROPENEM 500MG/50 ML (PMX) 50 ML IVPB ×2 (09:25→20:23)
[2018-12-21] MEDS: FAMOTIDINE 20 MG INJ IV ×2 (09:25→20:28)
[2018-12-21] MEDS: BALSAM PERU/CASTOR OIL 60 GM TUBE TOP ×2 (09:34→20:23)
[2018-12-21] MEDS ORDERED: NA BICARBONATE 8.4% 50 ML SYG ×2 (10:12)
[2018-12-21] MEDS: NA BICARBONATE 8.4% 50 ML SYG IV (10:17)
[2018-12-21] MEDS ORDERED: SODIUM BICARBONATE (IV ADD) 150 MEQ in DEXTROSE 5% 1,000 ML IV (11:00)
[2018-12-21] MEDS ORDERED: FENTAnyl 50 MCG/ML VIAL (11:34)
[2018-12-21 11:35] LABS: AADO2 Arterial 283.6 mmHg (7.0-24.0); Allen Test ACCEPTAB; Arterial Base Excess -6.8 mmol/L (-3.0-3); Arterial Blood Gas Oxygen Sat 95.1 mmHG (95.0-100.0); Arterial COHb 0.1 % (0.0-3.0); Arterial Fraction of Oxyhgb 94.9 % (93.0-99.0); Arterial MetHb 0.1 % (0.0-1.5); Arterial pCO2 45.3 mmhg (35-45); MODE VENT - AC; Site Left Radial
[2018-12-21 12:27] LABS: ADD MAN DIFF? NO
[2018-12-21 12:29] LABS: WHITE BLOOD COUNT 16.3 10^3/ul (4.8-10.8)
[2018-12-21 12:29] LABS: BASOPHILS % 0.1 % (0.0-2.0); HEMATOCRIT 25.5 % (42.0-52.0); HEMOGLOBIN 8.4 g/dl (14.0-18.0); LYMPHOCYTES # 1.7 10^3/ul (0.8-2.9); LYMPHOCYTES % 10.1 % (15.0-51.0); MEAN CORPUSCULAR HEMOGLOBIN 29.6 pg (29.0-33.0); MEAN CORPUSCULAR HGB CONC 32.9 g/dl (32.0-37.0); MEAN CORPUSCULAR VOLUME 89.8 fl (82.0-101.0); MEAN PLATELET VOLUME 11.4 fl (7.4-10.4); MONOCYTE # 0.6 10^3/ul (0.3-0.9); MONOCYTES % 3.7 % (0.0-11.0); NEUTROPHIL # 13.9 10^3/ul (1.6-7.5); NEUTROPHILS % 85.2 % (39.0-77.0); NUCLEATED RED BLOOD CELLS # 0.1 10^3/ul (0.0-0.0); NUCLEATED RED BLOOD CELLS% 0.4 /100WBC (0.0-0.0); PLATELET COUNT 223 10^3/UL (140-415); RED BLOOD COUNT 2.84 10^6/ul (4.70-6.10); RED CELL DISTRIBUTION WIDTH 14.5 % (11.5-14.5)
[2018-12-21] MEDS: FENTAnyl 50 MCG/ML VIAL IV (12:46)
[2018-12-21] MEDS: LIDOCAINE 1% (MPF) 5 ML VIAL INFIL (12:46)
[2018-12-21 12:52] LABS: ALANINE AMINOTRANSFERASE 530 IU/L (13-69); ALBUMIN 2.3 g/dl (3.3-4.9); ALBUMIN/GLOBULIN RATIO 0.67; ALKALINE PHOSPHATASE 42 IU/L (42-121); ANION GAP 13 (5-13); ASPARTATE AMINO TRANSFERASE 714 IU/L (15-46); BILIRUBIN,INDIRECT 0.5 mg/dl (0-1.1); BILIRUBIN,TOTAL 0.5 mg/dl (0.2-1.3); BLOOD UREA NITROGEN 114 mg/dl (7-20); CALCIUM 7.9 mg/dl (8.4-10.2); CARBON DIOXIDE 23 mmol/L (21-31); CHLORIDE 124 mmol/L (97-110); CREATININE 2.45 mg/dl (0.61-1.24); GLUCOSE 150 mg/dl (70-220); POTASSIUM 3.9 mmol/L (3.5-5.1); SODIUM 160 mmol/L (135-144); TOTAL PROTEIN 5.7 g/dl (6.1-8.1)
[2018-12-21] MEDS: FENTAnyl (DRIP) 1000 mcg/100mL 100 ML IV (12:57)
[2018-12-21] MEDS: SODIUM BICARBONATE (IV ADD) 100 MEQ in DEXTROSE 5% 1,000 ML IV (12:59)
[2018-12-21] MEDS: IPRATROPIUM (HFA) 12.9 GM INHALER INH ×3 (13:00→21:40)
[2018-12-21] MEDS: ALBUTEROL HFA 8 GM INHALER INH ×3 (14:18→21:40)
[2018-12-21] MEDS: POTASSIUM CHLORIDE 50 ML IVPB (18:02)
[2018-12-21 19:15] LABS: HEMATOCRIT 21.8 % (42.0-52.0); HEMOGLOBIN 7.1 g/dl (14.0-18.0)
[2018-12-21] MEDS: NORepinephrine 8MG/250 ML (PMX 250 ML IV (21:41)
[2018-12-21 21:51] LABS: HEMATOCRIT 19.6 % (42.0-52.0)
[2018-12-21 21:57] LABS: HEMOGLOBIN 6.2 g/dl (14.0-18.0)
[2018-12-21] MEDS: PHENYLephrine 80 MG in DEXTROSE 5% 242 ML IV (23:01)
[2018-12-22] MEDS: Insulin NOVOLOG SS MILD Algorithm (NPO/TPN/ENTERAL FEEDS) SC ×6 (01:00→21:15)
[2018-12-22] MEDS: IPRATROPIUM (HFA) 12.9 GM INHALER INH ×6 (01:21→21:10)
[2018-12-22] MEDS: ALBUTEROL HFA 8 GM INHALER INH ×6 (01:21→21:10)
[2018-12-22 03:15] LABS: HEMATOCRIT 33.8 % (42.0-52.0); HEMOGLOBIN 10.6 g/dl (14.0-18.0)
[2018-12-22] MEDS: PHENYLephrine 80 MG in DEXTROSE 5% 242 ML IV ×6 (03:51→22:14)
[2018-12-22 05:41] LABS: HEMATOCRIT 33.3 % (42.0-52.0); HEMOGLOBIN 10.3 g/dl (14.0-18.0); MEAN CORPUSCULAR HEMOGLOBIN 29.4 pg (29.0-33.0); MEAN CORPUSCULAR HGB CONC 30.9 g/dl (32.0-37.0); MEAN CORPUSCULAR VOLUME 95.1 fl (82.0-101.0); MEAN PLATELET VOLUME 12.6 fl (7.4-10.4); NUCLEATED RED BLOOD CELLS% 0.5 /100WBC (0.0-0.0); PLATELET COUNT 111 10^3/UL (140-415); POSITIVE DIFF @See below; RED CELL DISTRIBUTION WIDTH 14.5 % (11.5-14.5)
[2018-12-22 05:41] LABS: WHITE BLOOD COUNT 17.8 10^3/ul (4.8-10.8)
[2018-12-22] MEDS: NA BICARBONATE 8.4% 50 ML SYG IV (05:41)
[2018-12-22 05:43] LABS: ADD MAN DIFF? YES
[2018-12-22] MEDS: SODIUM BICARBONATE (IV ADD) 100 MEQ in DEXTROSE 5% 1,000 ML IV (05:46)
[2018-12-22 05:49] LABS: ANION GAP 14 (5-13); BLOOD UREA NITROGEN 104 mg/dl (7-20); CARBON DIOXIDE 14 mmol/L (21-31); CHLORIDE 129 mmol/L (97-110); CREATININE 2.75 mg/dl (0.61-1.24); GLUCOSE 172 mg/dl (70-220); SODIUM 157 mmol/L (135-144)
[2018-12-22 06:04] LABS: MAGNESIUM 1.8 mg/dl (1.7-2.5)
[2018-12-22 06:04] LABS: PHOSPHORUS 11.7 mg/dl (2.5-4.9)
[2018-12-22 06:06] LABS: CALCIUM 4.6 mg/dl (8.4-10.2)
[2018-12-22 06:08] LABS: LACTIC ACID 6.8 mmol/L (0.5-2.0)
[2018-12-22] MEDS: SOD CHLORIDE 0.9% 500 ML IV (06:22)
[2018-12-22] MEDS ORDERED: METOCLOPRAMIDE 10 MG INJ IM (07:00)
[2018-12-22 07:18] LABS: ANISOCYTOSIS 1+ (0-0); BAND NEUTROPHILS #M 0.5 10^3/ul (0.0-0.6); BAND NEUTROPHILS % (M) 3 % (0-4); BURR CELLS 3+ (0-0); GIANT THROMBO% (M) 2 % (0-0); PLATELET ESTIMATE DECREASED; POIKILOCYTOSIS 3+ (0-0); SEG NEUT #M 17.4 10^3/ul (1.6-7.5); SEGMENTED NEUTROPHILS (M) % 97 % (39-77); SMUDGE%M 6 % (0-0)
[2018-12-22] MEDS: METOCLOPRAMIDE 10 MG INJ IV (07:18)
[2018-12-22] MEDS: CALCIUM GLUCONATE 10% 1 GM in DEXTROSE 5% 100 ML IVPB (07:48)
[2018-12-22] MEDS: LINEZOLID 600 MG/300 ML (PMX) 300 ML IVPB (08:23)
[2018-12-22] MEDS: FAMOTIDINE 20 MG INJ IV ×3 (08:23→21:06)
[2018-12-22] MEDS: MEROPENEM 500MG/50 ML (PMX) 50 ML IVPB ×2 (08:23→21:06)
[2018-12-22 08:47] LABS: AADO2 Arterial 302.6 mmHg (7.0-24.0); Allen Test ACCEPTAB; Arterial Blood Gas Oxygen Sat 99.1 mmHG (95.0-100.0); Arterial COHb 0.3 % (0.0-3.0); Arterial Fraction of Oxyhgb 98.3 % (93.0-99.0); Arterial HCO3 15.9 mmol/L (22.0-26.0); Arterial MetHb 0.5 % (0.0-1.5); Arterial pCO2 54.1 mmhg (35-45); MODE VENT - AC; Site Right Radial
[2018-12-22] MEDS: SUCRALFATE (100 MG/ML) 10ML CUP NGT ×4 (09:00→21:00)
[2018-12-22] MEDS: ASPIRIN (EC) 81 MG TAB PO (09:00)
[2018-12-22] MEDS: BALSAM PERU/CASTOR OIL 60 GM TUBE TOP ×2 (09:05→21:08)
[2018-12-22] MEDS: NORepinephrine 32 MG in DEXTROSE 5% 218 ML IV (09:33)
[2018-12-22 09:36] LABS: ABNORMAL IP MESSAGE 1; HEMATOCRIT 25.9 % (42.0-52.0); HEMOGLOBIN 8.4 g/dl (14.0-18.0); MEAN CORPUSCULAR HEMOGLOBIN 30.1 pg (29.0-33.0); MEAN CORPUSCULAR HGB CONC 32.4 g/dl (32.0-37.0); MEAN CORPUSCULAR VOLUME 92.8 fl (82.0-101.0); MEAN PLATELET VOLUME 13.1 fl (7.4-10.4); NUCLEATED RED BLOOD CELLS% 0.6 /100WBC (0.0-0.0); PLATELET COUNT 94 10^3/UL (140-415); POSITIVE DIFF @See below; RED BLOOD COUNT 2.79 10^6/ul (4.70-6.10); RED CELL DISTRIBUTION WIDTH 14.6 % (11.5-14.5)
[2018-12-22 09:36] LABS: WHITE BLOOD COUNT 15.5 10^3/ul (4.8-10.8)
[2018-12-22 09:40] LABS: ADD MAN DIFF? YES
[2018-12-22] MEDS: VASOPRESSIN 60 UNIT in DEXTROSE 5% 57 ML IV ×2 (09:43→21:00)
[2018-12-22 09:55] LABS: ALBUMIN 1.4 g/dl (3.3-4.9); ALBUMIN/GLOBULIN RATIO 0.66; ALKALINE PHOSPHATASE 41 IU/L (42-121); ANION GAP 13 (5-13); BILIRUBIN,INDIRECT 0.3 mg/dl (0-1.1); BILIRUBIN,TOTAL 0.3 mg/dl (0.2-1.3); BLOOD UREA NITROGEN 111 mg/dl (7-20); CARBON DIOXIDE 19 mmol/L (21-31); CHLORIDE 118 mmol/L (97-110); CREATININE 3.02 mg/dl (0.61-1.24); POTASSIUM 3.9 mmol/L (3.5-5.1); SODIUM 150 mmol/L (135-144); TOTAL PROTEIN 3.5 g/dl (6.1-8.1)
[2018-12-22 09:57] LABS: INR 2.98; PARTIAL THROMBOPLASTIN TIME 37.1 Sec (23.0-35.0); PT RATIO 2.4
[2018-12-22 10:06] LABS: CALCIUM 4.9 mg/dl (8.4-10.2); GLUCOSE 415 mg/dl (70-220)
[2018-12-22 10:07] LABS: ALANINE AMINOTRANSFERASE 2696 IU/L (13-69)
[2018-12-22 10:17] LABS: ANISOCYTOSIS 1+ (0-0); BAND NEUTROPHILS #M 1.2 10^3/ul (0.0-0.6); BAND NEUTROPHILS % (M) 8 % (0-4); BURR CELLS 2+ (0-0); LYMPHOCYTES #M 0.7 10^3/ul (0.8-2.9); LYMPHOCYTES % (M) 5 % (15-51); MONOCYTE #M 0.3 10^3/ul (0.3-0.9); MONOCYTES % (M) 2 % (0-11); OVALOCYTES 1+ (0-0); PLATELET ESTIMATE DECREASED; POIKILOCYTOSIS 2+ (0-0); POLYCHROMASIA 1+ (0-0); SEG NEUT #M 13.4 10^3/ul (1.6-7.5); SEGMENTED NEUTROPHILS (M) % 85 % (39-77); SMUDGE%M 1 % (0-0)
[2018-12-22 10:37] LABS: ASPARTATE AMINO TRANSFERASE 6716 IU/L (15-46)
[2018-12-22] MEDS ORDERED: ALBUMIN HUMAN 25% 100 ML (11:12)
[2018-12-22] MEDS: HYDROCORTISONE 100 MG INJ IV ×3 (11:18→23:08)
[2018-12-22] MEDS: ALBUMIN HUMAN 25% 100 ML IV ×3 (11:25→23:09)
[2018-12-22 11:50] LABS: Allen Test ACCEPTAB; Arterial Blood Gas Oxygen Sat 96.7 mmHG (95.0-100.0); Arterial COHb 0.1 % (0.0-3.0); Arterial Fraction of Oxyhgb 96.3 % (93.0-99.0); Arterial HCO3 13.2 mmol/L (22.0-26.0); Arterial MetHb 0.3 % (0.0-1.5); Arterial pCO2 40.7 mmhg (35-45); MODE VENT - AC; Site Right Radial
[2018-12-22] MEDS: SODIUM BICARBONATE (IV ADD) 150 MEQ in DEXTROSE 5% 1,000 ML IV (12:06)
[2018-12-22] MEDS ORDERED: VANCOMYCIN IV PER PHARMACY XX (13:00)
[2018-12-22 14:51] LABS: IMMEDIATE SPIN CROSSMATCH 1 13
[2018-12-22 15:06] LABS: ABNORMAL IP MESSAGE 1; HEMATOCRIT 20.3 % (42.0-52.0); MEAN CORPUSCULAR HEMOGLOBIN 29.8 pg (29.0-33.0); MEAN CORPUSCULAR VOLUME 93.1 fl (82.0-101.0); MEAN PLATELET VOLUME 12.5 fl (7.4-10.4); NUCLEATED RED BLOOD CELLS% 0.8 /100WBC (0.0-0.0); PLATELET COUNT 77 10^3/UL (140-415); POSITIVE DIFF @See below; RED BLOOD COUNT 2.18 10^6/ul (4.70-6.10); RED CELL DISTRIBUTION WIDTH 14.9 % (11.5-14.5)
[2018-12-22 15:22] LABS: ADD MAN DIFF? YES
[2018-12-22 15:23] LABS: HEMOGLOBIN 6.5 g/dl (14.0-18.0)
[2018-12-22 15:57] LABS: ANISOCYTOSIS 2+ (0-0); BAND NEUTROPHILS #M 0.5 10^3/ul (0.0-0.6); BAND NEUTROPHILS % (M) 4 % (0-4); LYMPHOCYTES #M 0.9 10^3/ul (0.8-2.9); LYMPHOCYTES % (M) 7 % (15-51); MICROCYTOSIS 2+ (0-0); MONOCYTE #M 0.4 10^3/ul (0.3-0.9); MONOCYTES % (M) 3 % (0-11); PLATELET ESTIMATE DECREASED; POIKILOCYTOSIS 1+ (0-0); POLYCHROMASIA 2+ (0-0); SEG NEUT #M 12.1 10^3/ul (1.6-7.5); SEGMENTED NEUTROPHILS (M) % 86 % (39-77)
[2018-12-22] MEDS: VANCOMYCIN HCL 1.25 GM in SOD CHLORIDE 0.9% 250 ML IVPB (16:00)
[2018-12-22 16:12] LABS: IMMEDIATE SPIN CROSSMATCH 1
[2018-12-22] MEDS: FUROSEMIDE 20 MG INJ IV (16:27)
[2018-12-22] MEDS: POTASSIUM CHLORIDE 50 ML IVPB (18:21)
[2018-12-22 22:25] LABS: HEMATOCRIT 21.7 % (42.0-52.0)
[2018-12-23] MEDS: IPRATROPIUM (HFA) 12.9 GM INHALER INH ×4 (01:05→12:56)
[2018-12-23] MEDS: ALBUTEROL HFA 8 GM INHALER INH ×4 (01:05→12:56)
[2018-12-23] MEDS: FENTAnyl (DRIP) 1000 mcg/100mL 100 ML IV (01:32)
[2018-12-23] MEDS: Insulin NOVOLOG SS MILD Algorithm (NPO/TPN/ENTERAL FEEDS) SC ×4 (01:59→13:00)
[2018-12-23] MEDS: SODIUM BICARBONATE (IV ADD) 150 MEQ in DEXTROSE 5% 1,000 ML IV ×2 (02:07→05:24)
[2018-12-23 04:35] LABS: WHITE BLOOD COUNT 10.9 10^3/ul (4.8-10.8)
[2018-12-23 04:35] LABS: ABNORMAL IP MESSAGE 1; HEMATOCRIT 20.4 % (42.0-52.0); MEAN CORPUSCULAR HEMOGLOBIN 29.8 pg (29.0-33.0); MEAN CORPUSCULAR HGB CONC 32.8 g/dl (32.0-37.0); MEAN CORPUSCULAR VOLUME 90.7 fl (82.0-101.0); MEAN PLATELET VOLUME 13.4 fl (7.4-10.4); PLATELET COUNT 43 10^3/UL (140-415); POSITIVE DIFF @See below; RED BLOOD COUNT 2.25 10^6/ul (4.70-6.10); RED CELL DISTRIBUTION WIDTH 14.1 % (11.5-14.5)
[2018-12-23 04:57] LABS: ALBUMIN/GLOBULIN RATIO 1.11; ANION GAP 21 (5-13); CARBON DIOXIDE 16 mmol/L (21-31); CHLORIDE 118 mmol/L (97-110); CREATININE 3.94 mg/dl (0.61-1.24); GLUCOSE 195 mg/dl (70-220); MAGNESIUM 1.8 mg/dl (1.7-2.5); PHOSPHORUS 11.4 mg/dl (2.5-4.9); POTASSIUM 4.5 mmol/L (3.5-5.1); SODIUM 155 mmol/L (135-144); TOTAL PROTEIN 3.8 g/dl (6.1-8.1)
[2018-12-23 05:09] LABS: ADD MAN DIFF? YES; HEMOGLOBIN 6.7 g/dl (14.0-18.0)
[2018-12-23 05:11] LABS: AADO2 Arterial 127.4 mmHg (7.0-24.0); Allen Test ACCEPTAB; Arterial Base Excess -13.7 mmol/L (-3.0-3); Arterial Blood Gas Oxygen Sat 96.7 mmHG (95.0-100.0); Arterial COHb 0.3 % (0.0-3.0); Arterial Fraction of Oxyhgb 95.8 % (93.0-99.0); Arterial HCO3 13.2 mmol/L (22.0-26.0); Arterial MetHb 0.6 % (0.0-1.5); MODE VENT - AC; Site Right Radial
[2018-12-23 05:14] LABS: LACTIC ACID 12.6 mmol/L (0.5-2.0)
[2018-12-23] MEDS: HYDROCORTISONE 100 MG INJ IV ×2 (05:25→11:59)
[2018-12-23] MEDS: PHENYLephrine 80 MG in DEXTROSE 5% 242 ML IV ×4 (05:30→22:56)
[2018-12-23 05:41] LABS: ALKALINE PHOSPHATASE 43 IU/L (42-121)
[2018-12-23 05:42] LABS: ALANINE AMINOTRANSFERASE 2590 IU/L (13-69); ASPARTATE AMINO TRANSFERASE 6735 IU/L (15-46)
[2018-12-23 05:43] LABS: BLOOD UREA NITROGEN 123 mg/dl (7-20)
[2018-12-23 05:44] LABS: CALCIUM 4.6 mg/dl (8.4-10.2)
[2018-12-23 05:54] LABS: EOSINOPHILS % (M) 1 % (0-7); PLASMA CELLS #M 0.1 10^3/ul (0.0-0.0); PLASMAC%(M) 1 % (0); POIKILOCYTOSIS 2+ (0-0)
[2018-12-23] MEDS ORDERED: NA BICARBONATE 8.4% 50 ML SYG ×3 (07:00→10:02)
[2018-12-23] MEDS ORDERED: EPINEPHrine 0.1 MG/ML SYG (07:00)
[2018-12-23] MEDS ORDERED: CA CHLORIDE 10% 10 ML SYRINGE (07:00)
[2018-12-23] MEDS: VASOPRESSIN 60 UNIT in DEXTROSE 5% 57 ML IV ×2 (08:15→18:25)
[2018-12-23] MEDS: EPINEPHrine 4 MG in SOD CHLORIDE 0.9% 246 ML IV (08:31)
[2018-12-23] MEDS: PHYTONADIONE 10 MG in DEXTROSE 5% 50 ML IVPB (08:32)
[2018-12-23] MEDS: CALCIUM GLUCONATE 10% 2 GM in DEXTROSE 5% 100 ML IVPB (08:32)
[2018-12-23] MEDS: MEROPENEM 500MG/50 ML (PMX) 50 ML IVPB (08:42)
[2018-12-23] MEDS: SUCRALFATE (100 MG/ML) 10ML CUP NGT ×3 (09:00→13:51)
[2018-12-23] MEDS: FAMOTIDINE 20 MG INJ IV (09:00)
[2018-12-23 09:02] LABS: PARTIAL THROMBOPLASTIN TIME 51.3 Sec (23.0-35.0)
[2018-12-23] MEDS: BALSAM PERU/CASTOR OIL 60 GM TUBE TOP (09:03)
[2018-12-23 09:24] LABS: ANISOCYTOSIS 1+ (0-0); BAND NEUTROPHILS #M 0.9 10^3/ul (0.0-0.6); BAND NEUTROPHILS % (M) 9 % (0-4); BURR CELLS 2+ (0-0); ERYTHROBLAST% (NRBC) (M) 6 % (0-0); GIANT THROMBO% (M) 2 % (0-0); LYMPHOCYTES #M 1.6 10^3/ul (0.8-2.9); LYMPHOCYTES % (M) 15 % (15-51); MICROCYTOSIS 1+ (0-0); MONOCYTE #M 0.1 10^3/ul (0.3-0.9); MONOCYTES % (M) 1 % (0-11); PLATELET ESTIMATE SIG DECREASED; SEG NEUT #M 8.3 10^3/ul (1.6-7.5); SEGMENTED NEUTROPHILS (M) % 75 % (39-77); SMUDGE%M 2 % (0-0)
[2018-12-23 09:39] LABS: IMMEDIATE SPIN CROSSMATCH 1 3
[2018-12-23] MEDS: NA BICARBONATE 8.4% 50 ML SYG IV (10:16)
[2018-12-23 12:44] LABS: TYPE AND SCREEN 1
[2018-12-23 14:55] LABS: ABNORMAL IP MESSAGE 1; HEMATOCRIT 18.1 % (42.0-52.0); MEAN CORPUSCULAR HEMOGLOBIN 30.9 pg (29.0-33.0); MEAN CORPUSCULAR HGB CONC 33.1 g/dl (32.0-37.0); MEAN CORPUSCULAR VOLUME 93.3 fl (82.0-101.0); MEAN PLATELET VOLUME 11.4 fl (7.4-10.4); NUCLEATED RED BLOOD CELLS% 2.3 /100WBC (0.0-0.0); PLATELET COUNT 130 10^3/UL (140-415); POSITIVE DIFF @See below; RED BLOOD COUNT 1.94 10^6/ul (4.70-6.10)
[2018-12-23 14:55] LABS: WHITE BLOOD COUNT 15.4 10^3/ul (4.8-10.8)
[2018-12-23 15:00] LABS: ADD MAN DIFF? YES
[2018-12-23 15:51] LABS: ACANTHOCYTES 1+ (0-0); ANISOCYTOSIS 2+ (0-0); BAND NEUTROPHILS #M 0.4 10^3/ul (0.0-0.6); BAND NEUTROPHILS % (M) 3 % (0-4); ECHINOCYTOSIS 2+ (0-0); ERYTHROBLAST% (NRBC) (M) 4 % (0-0); LYMPHOCYTES % (M) 7 % (15-51); MICROCYTOSIS 1+ (0-0); MONOCYTE #M 0.1 10^3/ul (0.3-0.9); MONOCYTES % (M) 1 % (0-11); POIKILOCYTOSIS 3+ (0-0); POLYCHROMASIA 3+ (0-0); SEG NEUT #M 13.8 10^3/ul (1.6-7.5); SEGMENTED NEUTROPHILS (M) % 89 % (39-77)
[2018-12-23] MEDS ORDERED: EPINEPHrine 4 MG in SOD CHLORIDE 0.9% 246 ML IV (17:00)
[2018-12-23] MEDS ORDERED: NORepinephrine 32 MG in DEXTROSE 5% 218 ML IV (17:00)
[2018-12-23] MEDS ORDERED: FENTAnyl (DRIP) 1000 mcg/100mL 100 ML IV (17:00)
[2018-12-23] MEDS ORDERED: PHENYLephrine 20MG IN 250 ML 250 ML (17:18)
[2018-12-23] MEDS: morphine (DRIP) 100 MG/100 ML 100 ML IV (17:18)
[2018-12-23] MEDS ORDERED: FAMOTIDINE 20 MG INJ IV (21:00)
== END 2018-12-23 23:47 | disposition expired | DRG 871 ==
LOC: ICU 12-20 07:30 → E/R 10:53 → 6WM 13:57
PROC: 02HV33Z Insertion of Infusion Device into Superior Vena Cava, Percutaneous Approach (ICD-10-PCS; principal; 2018-12-18 11:35)
PROC: 0DB68ZX Excision of Stomach, Via Natural or Artificial Opening Endoscopic, Diagnostic (ICD-10-PCS; 2018-12-18 11:35)
PROC: 0W9900Z Drainage of Right Pleural Cavity with Drainage Device, Open Approach (ICD-10-PCS; 2018-12-18 11:35)
PROC: 5A12012 Performance of Cardiac Output, Single, Manual (ICD-10-PCS; 2018-12-18 11:35)
PROC: 0BH17EZ Insertion of Endotracheal Airway into Trachea, Via Natural or Artificial Opening (ICD-10-PCS; 2018-12-18 11:35)
PROC: 5A1945Z Respiratory Ventilation, 24-96 Consecutive Hours (ICD-10-PCS; 2018-12-18 11:35)
DX: A41.01 Sepsis due to Methicillin susceptible Staphylococcus aureus (principal); J69.0 Pneumonitis due to inhalation of food and vomit; J96.01 Acute respiratory failure with hypoxia; G92 Toxic encephalopathy; K26.4 Chronic or unspecified duodenal ulcer with hemorrhage; J96.02 Acute respiratory failure with hypercapnia; R65.21 Severe sepsis with septic shock; N17.9 Acute kidney failure, unspecified; E87.0 Hyperosmolality and hypernatremia; E44.1 Mild protein-calorie malnutrition; Z68.1 Body mass index [BMI] 19.9 or less, adult; E87.2 Acidosis; I13.0 Hypertensive heart and chronic kidney disease with heart failure and stage 1 through stage 4 chronic kidney disease, or unspecified chronic kidney disease; J93.9 Pneumothorax, unspecified; D62 Acute posthemorrhagic anemia; F31.9 Bipolar disorder, unspecified; E87.6 Hypokalemia; E86.0 Dehydration; F03.90 Unspecified dementia, unspecified severity, without behavioral disturbance, psychotic disturbance, mood disturbance, and anxiety; E11.22 Type 2 diabetes mellitus with diabetic chronic kidney disease; N18.9 Chronic kidney disease, unspecified; K29.80 Duodenitis without bleeding; K29.00 Acute gastritis without bleeding; J44.9 Chronic obstructive pulmonary disease, unspecified; E83.9 Disorder of mineral metabolism, unspecified; E83.42 Hypomagnesemia; Z86.73 Personal history of transient ischemic attack (TIA), and cerebral infarction without residual deficits; D63.1 Anemia in chronic kidney disease; D69.6 Thrombocytopenia, unspecified; R13.10 Dysphagia, unspecified; I50.9 Heart failure, unspecified; I46.9 Cardiac arrest, cause unspecified; I25.10 Atherosclerotic heart disease of native coronary artery without angina pectoris; E78.5 Hyperlipidemia, unspecified; K72.90 Hepatic failure, unspecified without coma; E11.65 Type 2 diabetes mellitus with hyperglycemia
CPT/HCPCS: 31500; 36430; 36569; 36600; 70450; 71045; 71250; 76775; 76937; 80048; 80053; 81001; 81003; 82043; 82270; 82803; 82962; 83605; 83735; 83935; 84100; 84134; 84155; 84300; 84478; 84484; 85014; 85018; 85025; 85335; 85610; 85730; 86644; 86850; 86900; 86901; 86920; 87040-91; 87081; 87086; 88305; 88312; 92526; 92610; 93005; 93306; 94003; 94640; 94644; 94660; 94667; 94668; 94770; 96374; 96375; 99285-25